=== PATIENT | male | born 1950 | race Caucasian/White ===

== ENCOUNTER 2018-05-18 10:25 | Inpatient (IN) | payer OTHER ==
[~2018-05-18] VITALS: Ht 180.3 cm; Wt 81.6 kg
[2018-05-18] MEDS ORDERED: NORVASC2.5 M1 PO (10:51)
[2018-05-18] MEDS ORDERED: COUMADIN3 MG PO (10:52)
[2018-05-18] MEDS ORDERED: CARVEDILOL25 MG PO (10:52)
[2018-05-18] MEDS ORDERED: LISINOPRIL40 MG PO (10:52)
[2018-05-18] MEDS ORDERED: LASIX20 MG PO (10:52)
[2018-05-18] MEDS ORDERED: LIPITOR20 MG PO (10:53)
== END 2018-05-29 13:06 | disposition home or self-care (01) | DRG 375 ==
LOC: ER 10:25 → SEC-K 18:14 → SURH 05-19 19:53
PROC: BB24Y0Z Computerized Tomography (CT Scan) of Bilateral Lungs using Other Contrast, Unenhanced and Enhanced (ICD-10-PCS; 2018-05-19)
PROC: BW21Y0Z Computerized Tomography (CT Scan) of Abdomen and Pelvis using Other Contrast, Unenhanced and Enhanced (ICD-10-PCS; 2018-05-19)
PROC: 0DBN8ZX Excision of Sigmoid Colon, Via Natural or Artificial Opening Endoscopic, Diagnostic (ICD-10-PCS; principal; 2018-05-24)
PROC: 0W3P8ZZ Control Bleeding in Gastrointestinal Tract, Via Natural or Artificial Opening Endoscopic (ICD-10-PCS; 2018-05-24)
DX: C18.7 Malignant neoplasm of sigmoid colon (principal); K92.2 Gastrointestinal hemorrhage, unspecified; D68.8 Other specified coagulation defects; D12.5 Benign neoplasm of sigmoid colon; Z79.01 Long term (current) use of anticoagulants; Z95.2 Presence of prosthetic heart valve; I10 Essential (primary) hypertension; E78.4 Other hyperlipidemia; D50.0 Iron deficiency anemia secondary to blood loss (chronic)